=== PATIENT | male | born 1970 | race African-American/Black ===

== ENCOUNTER 2016-10-02 23:15 | Emergency (ER) | payer BC ==
[2016-10-02 23:25] VITALS: BP 171/87; PULSE 86; TEMP 98; BMI 32.5
--- NOTE | 2016-10-02 23:40 | PDOC ---
History of Present Illness - General History Source: Patient Exam Limitations: No Limitations - History of Present Illness Initial Comments: 10/03/16 00:05 The patient is a 45 year old male with no pertinent past medical history who presents to the ED with complaints of left eye injury that occurred today. 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 In the ED he complains of pain and redness to the area as well as photophobia. He has no other complaints at this time. The patient denies any fever or illness, change in vision or headache. <Frances Perez - Last Filed: 10/03/16 00:21> <Jaiden De Jesus - Last Filed: 10/03/16 00:31> - General Chief Complaint: Eye Problem Stated Complaint: EYE PROBLEM Time Seen by Provider: 10/02/16 23:39 Past History <Frances Perez - Last Filed: 10/03/16 00:21> - Past Medical History Other medical history: Pt denies - Psycho/Social/Smoking Cessation Hx Suicidal Ideation: No Smoking History: Never smoked Information on smoking cessation initiated: No Hx Alcohol Use: No Drug/Substance Use Hx: No Substance Use Type: None <Jaiden De Jesus - Last Filed: 10/03/16 00:31> - Past Medical History Allergies/Adverse Reactions: Allergies Allergy/AdvReac Type Severity Reaction Status Date / Time No Known Allergies Allergy Verified 10/02/16 23:21 Home Medications: Ambulatory Orders Tobramycin 0.3% Ophth Soln [Tobrex Ophthalmic Solution -] 1 drop OS Q6HPO #5 drops 10/03/16 Review of Systems - Review of Systems Able to Perform ROS?: Yes Comments:: 10/03/16 00:05 GENERAL/CONSTITUTIONAL: No fever or chills. No weakness. HEAD, EYES, EARS, NOSE AND THROAT: Present: left eye pain No change in vision. No ear pain or discharge. No sore throat. CARDIOVASCULAR: No chest pain or shortness of breath. RESPIRATORY: No cough, wheezing, or hemoptysis. GASTROINTESTINAL: No nausea, vomiting, diarrhea or constipation. GENITOURINARY: No dysuria, frequency, or change in urination. MUSCULOSKELETAL: No joint or muscle swelling or pain. No neck or back pain. SKIN: No rash NEUROLOGIC: No headache, vertigo, loss of consciousness, or change in strength/ sensation. ENDOCRINE: No increased thirst. No abnormal weight change. HEMATOLOGIC/LYMPHATIC: No anemia, easy bleeding, or history of blood clots. ALLERGIC/IMMUNOLOGIC: No hives or skin allergy. All Other Systems: Reviewed and Negative <Frances Perez - Last Filed: 10/03/16 00:21> *Physical Exam - Vital Signs Last Vital Signs Temp Pulse Resp BP Pulse Ox 98.0 F 86 20 171/87 96 10/02/16 23:22 10/02/16 23:22 10/02/16 23:22 10/02/16 23:22 10/02/16 23:22 - Physical Exam Comments: 10/03/16 00:06 GENERAL: Awake, alert, and fully oriented, in no acute distress HEAD: No signs of trauma EYES: PERRLA, EOMI, sclera anicteric, keratoconjunctivitis ENT: Auricles normal inspection, hearing grossly normal, nares patent, oropharynx clear without exudates. Moist mucosa NECK: Normal ROM, supple, no lymphadenopathy, JVD, or masses LUNGS: Breath sounds equal, clear to auscultation bilaterally. No wheezes, and no crackles HEART: Regular rate and rhythm, normal S1 and S2, no murmurs, rubs or gallops ABDOMEN: Soft, nontender, normoactive bowel sounds. No guarding, no rebound. No masses EXTREMITIES: Normal range of motion, no edema. No clubbing or cyanosis. No cords, erythema, or tenderness NEUROLOGICAL: Cranial nerves II through XII grossly intact. Normal speech, normal gait SKIN: Warm, Dry, normal turgor, no rashes or lesions noted. <Frances Perez - Last Filed: 10/03/16 00:21> - Vital Signs Last Vital Signs Temp Pulse Resp BP Pulse Ox 98.0 F 86 20 171/87 96 10/02/16 23:22 10/02/16 23:22 10/02/16 23:22 10/02/16 23:22 10/02/16 23:22 <Jaiden De Jesus - Last Filed: 10/03/16 00:31> *DC/Admit/Observation/Transfer - Attestations Scribe Attestion: 10/03/16 00:06 Documentation prepared by Frances Perez, acting as medical assistant secretary for Jaiden De Jesus DO. <Frances Perez - Last Filed: 10/03/16 00:21> - Discharge Dispostion Admit: No - Attestations Physician Attestion: 10/02/16 23:40 I, Dr. Jaiden De Jesus, attest that this document has been prepared under my direction and personally reviewed by me in its entirety. I further attest, that it accurately reflects all work, treatment, procedures and medical decision -making performed by me. <Jaiden De Jesus - Last Filed: 10/03/16 00:31> Diagnosis at time of Disposition: Keratoconjunctivitis Qualifiers: Laterality: left Qualified Code(s): H16.202 - Unspecified keratoconjunctivitis , left eye - Discharge Dispostion Disposition: HOME Condition at time of disposition: Improved - Prescriptions Prescriptions: Tobramycin 0.3% Ophth Soln [Tobrex Ophthalmic Solution -] 1 drop OS Q6HPO #5 drops - Referrals Referrals: Tyree Heredia MD [Staff Physician] - - Patient Instructions Printed Discharge Instructions: DI for Conjunctivitis Additional Instructions: Mr Villar, See the eye doctor this morning. Use the eye drop four times a day. return to us if any problems. Best- Dr. Noam De Jesus - Post Discharge Activity Work/School Note: Back to Work
[2016-10-03] MEDS ORDERED: TOBRAMYCIN 0.3% OPHTH SOLN 5 ML BOTTLE OU ONE (00:21)
[2016-10-03] MEDS ORDERED: TOBRAMYCIN 0.3% OPHTH SOLN 5 ML BOTTLE ONE (00:31)
== END 2016-10-03 00:35 | disposition home or self-care (01) ==
LOC: JER 23:15
DX: H16.202 Unspecified keratoconjunctivitis, left eye (principal)
CPT/HCPCS: 99281-25